=== PATIENT | female | born 1985 | race Caucasian/White ===

== ENCOUNTER → 2017-07-20 14:58 | Outpatient (CLI) | payer SELFPAY ==
[2017-07-20 16:19] LABS: Anion Gap 9 (5-15); BUN 16 mg/dL (7-18); BUN/Creat Ratio 20.3 RATIO (10-20); Calcium,Total 8.6 mg/dL (8.5-10.1); Chloride 107 mmol/L (98-107); Creatinine, Serum 0.79 mg/dL (0.55-1.02); EST Glomerular Filtration Rate 89 mL/min (>60); Est Glom Filt Rate - Afr Amer 108 mL/min (>60); Glucose 80 mg/dL (74-106); Potassium 3.5 mmol/L (3.5-5.1); Sodium Level 141 mmol/L (136-145)
== END ==
PROVIDERS: Family Provider Family Medicine; PCP Family Medicine; Visit Provider Family Medicine
DX: I10 Essential (primary) hypertension (principal)
CPT/HCPCS: 36415; 80048

== ENCOUNTER → 2018-04-19 16:00 | Outpatient (CLI) | payer OTHER, SELFPAY ==
[2015-08-06 03:54] VITALS: BMI 35.3
[2018-04-19 17:52] LABS: Anion Gap 12 (5-15); BUN 11 mg/dL (7-18); Calcium,Total 8.8 mg/dL (8.5-10.1); Chloride 106 mmol/L (98-107); Creatinine, Serum 0.73 mg/dL (0.55-1.02); EST Glomerular Filtration Rate 96 mL/min (>60); Est Glom Filt Rate - Afr Amer 116 mL/min (>60); Glucose 69 mg/dL (74-106); Potassium 3.8 mmol/L (3.5-5.1); Sodium Level 141 mmol/L (136-145)
== END ==
PROVIDERS: Family Provider Family Medicine; PCP Family Medicine; Visit Provider Family Medicine
DX: I10 Essential (primary) hypertension (principal)
CPT/HCPCS: 36415; 80048

== ENCOUNTER → 2018-10-18 | Outpatient (CLI) | payer OTHER, SELFPAY ==
[2015-08-06 03:54] VITALS: BMI 35.3
[2018-10-18 17:56] LABS: Anion Gap 7 (5-15); BUN 12 mg/dL (7-18); BUN/Creat Ratio 16.2 RATIO (10-20); Calcium,Total 8.9 mg/dL (8.5-10.1); Chloride 104 mmol/L (98-107); Creatinine, Serum 0.74 mg/dL (0.55-1.02); EST Glomerular Filtration Rate 95 mL/min (>60); Est Glom Filt Rate - Afr Amer 115 mL/min (>60); Glucose 82 mg/dL (74-106); Potassium 3.3 mmol/L (3.5-5.1); Sodium Level 138 mmol/L (136-145)
== END | disposition home or self-care (01) ==
LOC: MTLAB 16:23
PROVIDERS: Family Provider Family Medicine; PCP Family Medicine; Referring Provider Family Medicine; Visit Provider Family Medicine
DX: I10 Essential (primary) hypertension (principal)
CPT/HCPCS: 36415; 80048

== ENCOUNTER → 2018-11-18 | Outpatient (CLI) | payer OTHER, SELFPAY ==
[2015-08-06 03:54] VITALS: BMI 35.3
[2018-11-25 15:03] LABS: HPV Reflexed? NOT INDICATED; HPV Rflx Negative
== END | disposition home or self-care (01) ==
LOC: LABSPEC 15:26
PROVIDERS: PCP Family Medicine; Visit Provider Obstetrics & Gynecology
DX: Z12.4 Encounter for screening for malignant neoplasm of cervix (principal)
CPT/HCPCS: 88175; G0145

== ENCOUNTER → 2019-04-22 16:09 | Outpatient (CLI) | payer OTHER, SELFPAY ==
[2015-08-06 03:54] VITALS: BMI 35.3
[2019-04-22 18:44] LABS: Anion Gap 8 (5-15); BUN 10 mg/dL (7-18); BUN/Creat Ratio 11.6 RATIO (10-20); Calcium,Total 8.8 mg/dL (8.5-10.1); Chloride 106 mmol/L (98-107); Cholesterol 181 mg/dL (200); Creatinine, Serum 0.86 mg/dL (0.55-1.02); EST Glomerular Filtration Rate 79 mL/min (>60); Est Glom Filt Rate - Afr Amer 96 mL/min (>60); Glucose 86 mg/dL (74-106); High Density Lipoprotein 45 mg/dL; Potassium 3.3 mmol/L (3.5-5.1); Sodium Level 139 mmol/L (136-145); Triglycerides 207 mg/dL; Very Low Density Lipoprotein 41 mg/dL (5-40)
== END ==
PROVIDERS: PCP Family Medicine; Visit Provider Family Medicine
DX: I10 Essential (primary) hypertension (principal)
CPT/HCPCS: 36415; 80048; 80061

== ENCOUNTER → 2019-10-22 16:02 | Outpatient (CLI) | payer OTHER, SELFPAY ==
[2015-08-06 03:54] VITALS: BMI 35.3
[2019-10-22 18:49] LABS: Anion Gap 9 (5-15); BUN 10 mg/dL (7-18); BUN/Creat Ratio 14.1 RATIO (10-20); Chloride 101 mmol/L (98-107); Creatinine, Serum 0.71 mg/dL (0.55-1.02); EST Glomerular Filtration Rate 99 mL/min (>60); Est Glom Filt Rate - Afr Amer 120 mL/min (>60); Glucose 67 mg/dL (74-106); Potassium 3.2 mmol/L (3.5-5.1); Sodium Level 137 mmol/L (136-145)
== END ==
PROVIDERS: PCP Family Medicine; Referring Provider Family Medicine; Visit Provider Family Medicine
DX: I10 Essential (primary) hypertension (principal)
CPT/HCPCS: 36415; 80048

== ENCOUNTER → 2019-12-19 11:34 | Outpatient (CLI) | payer OTHER, SELFPAY ==
[2015-08-06 03:54] VITALS: BMI 35.3
[2019-12-19 15:16] LABS: BUN 10 mg/dL (7-18); Creatinine, Serum 0.71 mg/dL (0.55-1.02); Glucose 80 mg/dL (74-106)
[2019-12-19 15:17] LABS: Anion Gap 4 (5-15); BUN/Creat Ratio 14.1 RATIO (10-20); Calcium,Total 8.9 mg/dL (8.5-10.1); Chloride 104 mmol/L (98-107); EST Glomerular Filtration Rate 99 mL/min (>60); Est Glom Filt Rate - Afr Amer 120 mL/min (>60); Potassium 3.1 mmol/L (3.5-5.1); Sodium Level 138 mmol/L (136-145)
== END ==
PROVIDERS: PCP Family Medicine; Referring Provider Family Medicine; Visit Provider Family Medicine
DX: I10 Essential (primary) hypertension (principal)
CPT/HCPCS: 36415; 80048

== ENCOUNTER → 2020-01-23 14:30 | Outpatient (CLI) | payer OTHER, SELFPAY ==
[2015-08-06 03:54] VITALS: BMI 35.3
[2020-01-23 17:58] LABS: Anion Gap 8 (5-15); BUN 9 mg/dL (7-18); BUN/Creat Ratio 10.9 RATIO (10-20); Calcium,Total 9.3 mg/dL (8.5-10.1); Chloride 102 mmol/L (98-107); Creatinine, Serum 0.82 mg/dL (0.55-1.02); EST Glomerular Filtration Rate 83 mL/min (>60); Est Glom Filt Rate - Afr Amer 101 mL/min (>60); Glucose 94 mg/dL (74-106); Potassium 3.1 mmol/L (3.5-5.1); Sodium Level 139 mmol/L (136-145)
== END ==
PROVIDERS: PCP Family Medicine; Referring Provider Family Medicine; Visit Provider Family Medicine
DX: I10 Essential (primary) hypertension (principal)
CPT/HCPCS: 36415; 80048

== ENCOUNTER → 2020-02-23 09:22 | Outpatient (CLI) | payer OTHER, SELFPAY ==
[2015-08-06 03:54] VITALS: BMI 35.3
[2020-02-23 10:21] LABS: Anion Gap 4 (5-15); BUN 8 mg/dL (7-18); BUN/Creat Ratio 10.7 RATIO (10-20); Calcium,Total 9.1 mg/dL (8.5-10.1); Chloride 110 mmol/L (98-107); Creatinine, Serum 0.74 mg/dL (0.55-1.02); EST Glomerular Filtration Rate 94 mL/min (>60); Est Glom Filt Rate - Afr Amer 113 mL/min (>60); Glucose 92 mg/dL (74-106); Potassium 3.5 mmol/L (3.5-5.1); Sodium Level 142 mmol/L (136-145)
== END ==
PROVIDERS: PCP Family Medicine; Visit Provider Family Medicine
DX: I10 Essential (primary) hypertension (principal)
CPT/HCPCS: 36415; 80048

== ENCOUNTER → 2020-04-21 14:48 | Outpatient (CLI) | payer OTHER, SELFPAY ==
[2015-08-06 03:54] VITALS: BMI 35.3
--- NOTE | 2020-04-21 14:51 | RAD_ITS ---
STUDY: X-RAY - RIGHT KNEE REASON FOR EXAM: Female, 34 years old. right knee pain TECHNIQUE: For view(s) of the knee. COMPARISON: 05/19/2011 FINDINGS: Normal visualized distal femur. Normal visualized proximal tibia and fibula. Normal proximal tibiofibular articulation. Normal medial femorotibial compartment. Normal lateral femorotibial compartment. There is moderate degenerative arthrosis of the patellofemoral articulation. The soft tissue structures are unremarkable. 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 MRI may be useful. Electronically Signed: Axel Hall MD at 15:11 EST Tel , Service support ,
== END ==
PROVIDERS: PCP Family Medicine; Referring Provider Family Medicine; Visit Provider Family Medicine
DX: M25.561 Pain in right knee (principal)
CPT/HCPCS: 73564

== ENCOUNTER → 2020-10-20 14:04 | Outpatient (CLI) | payer OTHER, SELFPAY ==
[2015-08-06 03:54] VITALS: BMI 35.3
[2020-10-20 15:50] LABS: Anion Gap 8 (5-15); BUN 7 mg/dL (7-18); BUN/Creat Ratio 10.1 RATIO (10-20); Calcium,Total 9.1 mg/dL (8.5-10.1); Chloride 106 mmol/L (98-107); Cholesterol 204 mg/dL (200); Creatinine, Serum 0.69 mg/dL (0.55-1.02); EST Glomerular Filtration Rate 101 mL/min (>60); Est Glom Filt Rate - Afr Amer 122 mL/min (>60); Glucose 81 mg/dL (74-106); High Density Lipoprotein 41 mg/dL; Potassium 3.2 mmol/L (3.5-5.1); Sodium Level 139 mmol/L (136-145); Thyroid Stim Hormone (TSH) 1.11 uIU/mL (0.358-3.74); Triglycerides 138 mg/dL; Very Low Density Lipoprotein 28 mg/dL (5-40)
== END ==
PROVIDERS: PCP Family Medicine; Referring Provider Family Medicine; Visit Provider Family Medicine
DX: I10 Essential (primary) hypertension (principal); F32.9 Major depressive disorder, single episode, unspecified
CPT/HCPCS: 36415; 80048; 80061; 84443

== ENCOUNTER 2021-06-10 18:05 | Outpatient (CLI) | payer OTHER, SELFPAY ==
[2021-06-15 13:13] LABS: HPV APTIMA, High Risk Negative (Negative)
[2021-06-15 13:37] LABS: HPV Reflexed? YES, CHARGE PATIENT
== END 2021-06-10 23:59 | disposition short-term general hospital (02) ==
PROVIDERS: PCP Family Medicine; Referring Provider Family Medicine; Visit Provider Family Medicine
DX: Z12.4 Encounter for screening for malignant neoplasm of cervix (principal)
CPT/HCPCS: 87624; 88175; G0145

== ENCOUNTER → 2021-12-05 | Outpatient (CLI) | payer OTHER, SELFPAY ==
[2021-12-05 18:17] LABS: Anion Gap 4 (5-15); BUN 10 mg/dL (7-18); BUN/Creat Ratio 13.9 RATIO (10-20); Calcium,Total 9.2 mg/dL (8.5-10.1); Chloride 107 mmol/L (98-107); Cholesterol 183 mg/dL (200); Creatinine, Serum 0.72 mg/dL (0.55-1.02); EST Glomerular Filtration Rate 97 mL/min (>60); Est Glom Filt Rate - Afr Amer 117 mL/min (>60); Glucose 89 mg/dL (74-106); High Density Lipoprotein 39 mg/dL; Potassium 3.9 mmol/L (3.5-5.1); Sodium Level 137 mmol/L (136-145); Triglycerides 187 mg/dL; Very Low Density Lipoprotein 37 mg/dL (5-40)
== END | disposition home or self-care (01) ==
LOC: MFPLAB 15:50
PROVIDERS: PCP Family Medicine; Referring Provider Family Medicine; Visit Provider Family Medicine
DX: I10 Essential (primary) hypertension (principal)
CPT/HCPCS: 36415; 80048; 80061

== ENCOUNTER → 2022-11-20 | Outpatient (CLI) | payer OTHER, SELFPAY ==
[2022-11-20 18:32] LABS: Anion Gap 5 (5-15); BUN 8 mg/dL (7-18); BUN/Creat Ratio 9.8 RATIO (10-20); Calcium,Total 8.8 mg/dL (8.5-10.1); Chloride 106 mmol/L (98-107); Cholesterol 185 mg/dL (200); Creatinine, Serum 0.82 mg/dL (0.55-1.02); EST Glomerular Filtration Rate 83 mL/min (>60); Est Glom Filt Rate - Afr Amer 101 mL/min (>60); Glucose 101 mg/dL (74-106); High Density Lipoprotein 36 mg/dL; Potassium 3.6 mmol/L (3.5-5.1); Sodium Level 137 mmol/L (136-145); Triglycerides 238 mg/dL; Very Low Density Lipoprotein 48 mg/dL (5-40)
== END | disposition home or self-care (01) ==
LOC: MFPLAB 16:06
PROVIDERS: PCP Family Medicine; Visit Provider Family Medicine
DX: I10 Essential (primary) hypertension (principal)
CPT/HCPCS: 36415; 80048; 80061

== ENCOUNTER 2024-03-14 08:00 | Day surgery (SDC) | payer OTHER, SELFPAY ==
--- NOTE | 2024-03-12 15:58 | HP.PCM.OB_ITS ---
History and Physical Date of Admission: 03/14/24 Expand All Collapse All Pre-Op History and Physical HPI: The patient is a 38 year old female presenting for pre-operative visit. She is scheduled for Hysteroscopy D&C and Polypectomy with symphion, and IUD insertion- liletta, for AUB, adenomyosis, endometrial polyps on 03/14/24. Proc edure discussed along with risks, benefits and complications. Other alternatives discussed for management. Consent form signed? Yes. PAST MEDICAL HISTORY PAST MEDICAL HISTORY Diagnosis Date ? Cervical high risk HPV (human papillomavirus) test positive ? Depression ? Essential hypertension PAST SURGICAL HISTORY PAST SURGICAL HISTORY Procedure Laterality Date ? CERVIX UTERI CONIZA LP ELCTRO EXCI 2014 ? EXTRACTION ERUPTED TOOTH/EXR 2000 ? TONSILLECTOMY & ADENOIDECTOMY <AGE 10 CURRENT MEDICATIONS Current Outpatient Medications Medication Sig Dispense Refill ? losartan (COZAAR) 50 mg tablet Take 1 tablet by mouth every afternoon. ? sertraline (ZOLOFT) 100 mg tablet Take 1.5 tablets by mouth every afternoon. ? cetirizine HCl (ZYRTEC ORAL) Take by mouth. No current facility-administered medications for this visit. ALLERGIES: Patient has no known allergies. PERSONAL HISTORY: SOCIAL HISTORY Social History Tobacco Use ? Smoking status: Every Day Types: Cigarettes ? Smokeless tobacco: Never Vaping Use ? Vaping status: Never Used Substance Use Topics ? Alcohol use: Yes ? Drug use: Never FAMILY HISTORY: FAMILY HISTORY FAMILY HISTORY Problem Relation Age of Onset ? Heart Attack Mother 61 stents placed REVIEW OF SYMPTOMS: negative except as noted above PHYSICAL EXAMINATION: VITALS: Blood pressure 142/88, pulse 66, height 167.6 cm (5' 6), weight 103.9 kg (229 lb), last menstrual period 03/03/2024, SpO2 97%. GENERAL: The patient is well nourished, well hydrated in no acute distress. , The patient is oriented to time, place, and person. NECK: full range of motion IMPRESSION: 38yo with AUB, Adenomyosis, Endometrial polyp, PLAN: Hysteroscopy, D&C, Polypectomy with symphion and insertion of Liletta IUD Pt has been counseled on risks/benefits and alternatives of surgery including but not limited to anesthesia, bleeding, infection, Uterine perforation with subsequent injury to pelvic structures including bowel, bladder, ureters and vessels. Pt wishes to proceed with surgery at this time. Pre and post op instructions reviewed I have reviewed and updated past medical and surgical history, medications and allergies Ara Araya MD
[2024-03-14] VITALS (7 sets, daily range): BP systolic 128–141; BP diastolic 74–98; PULSE 60–77; RESP 16; TEMP 36–36.6; O2SAT 93–98; BMI 35.5
--- NOTE | 2024-03-14 | EMB_PTH ---
PATIENT: KAREN HEAD LOC: [facility] – [place] U#:[id number] AGE/SX: 38/F ROOM: RE03/14/[address]: Dr. Ara James, MDDOB: 1985 BED: DIS: 03/14/2024 SPEC #: [id number] RECD: 03/14/24 12:50 STATUS: LAINEY RANDI #: [id number] NORA: 03/14/24 00:[address]: Ara James DEPT: SURGICAL PATHOLOGY RECD BY: Kleber Carter ENTERED: 03/14/24 12:50 SP TYPE: ENDOM BX/C [place] DR: Dr. Freda Fraser MD Tissues: Endometrium, NOS Procedures: Surgery Specimen Level IV HEADER OPERATION: Hysteroscopy, D&C PRE-OP DIAGNOSIS: Abnormal uterine bleeding, adenomyosis, endometrial polyp TISSUE SUBMITTED: Endometrial curettings MICROSCOPIC DIAGNOSIS Endometrial curettings: Predominantly proliferative endometrium with focal area of mildly disordered proliferative endometrium. Fragments of benign endocervical mucosa. 03/17/2024 MICROSCOPIC DESCRIPTION Slides are reviewed. GROSS DESCRIPTION Received in fixative is one container labeled with the patient's name and designated Endometrial curettings. The specimen consists of multiple irregular fragments of zavaleta-pink soft tissue that in aggregate measure 5.0 x 3.0 x 0.2 cm. The specimen is totally submitted in two cassettes. 03/14/2024 TC:5 CPT:42285
--- NOTE | 2024-03-14 08:21 | PRE.ANES_ITS ---
ASA Classification* ASA Classification ASA Classification: 2 (SEE WRITTEN PRE ANESTHESIA RECORD FOR FULL ASSESSMENT) Assessment & Plan Anesthesia* Anesthesia Assessment Anesthesia Assessment: Discussed sedation and/or anesthesia options, risks, benefits, and alternatives with patient/parents/legal guardian/POA. Questions invited. The patient/parents/legal guardian/POA seems to understand and agrees to proceed with anesthesia plan. Reviewed the physical assessment, medical history, allergy history and patient home medications list prior to surgery/procedure/anesthetic and documented any changes. Performed airway and anesthesia risk assessments. Anesthesia Type Anesthesia Type: MAC (SEE WRITTEN PRE ANESTHESIA RECORD FOR FULL ASSESSMENT) Anesthesia Focused Assessment* Airway Assessment Mouth opens: >3 cm Mallampati Score: II Focused Labs Anesthesia Preop lab: CBC WBC 9.8 K/mm3 (4.4-11.0) 08/06/15 04:25 RBC 4.55 M/mm3 (4.2-5.4) 08/06/15 04:25 Hgb 13.6 g/dl (12.0-15.0) 08/06/15 04:25 Hct 40.5 % (37-47) 08/06/15 04:25 Plt Count 276 K/mm3 (150-450) 08/06/15 04:25 CHEMISTRY Potassium 3.6 mmol/L (3.5-5.1) 11/20/22 16:08 Sodium 137 mmol/L (136-145) 11/20/22 16:08 BUN 8 mg/dL (7-18) 11/20/22 16:08 Creatinine 0.82 mg/dL (0.55-1.02) 11/20/22 16:08 Glucose 101 mg/dL (74-106) 11/20/22 16:08 TSH 1.11 uIU/mL (0.358-3.74) 10/20/20 14:05 COAG PT 11.7 SECONDS (11.7-14.9) 08/06/15 04:25 Urine Test Negative Negative 09/23/14 11:41 Pre-Assessment Diagnosis/Proposed Procedure Planned Operative Procedure(s): Hysteroscopy,D&C Symphion, Liletta IUD insertion Anesthesia History 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 When Was Last Pacemaker Check QUESTION #4 FULL TEXT: You/Your Family Experience fever (hyperthermia) with Anesthesia Last Oral Intake Last Oral intake: Last Oral Intake NPO since Meds taken in AM with sips of water? Meds patient instructed to take am of surgery PONV PONV - calibration engineer: PONV - calibration engineer Female Yes 03/10/24 15:07 HX of Motion Sickness No 03/10/24 15:07 HX of N/V After Surgery No 03/10/24 15:07 Non-Smoker No 03/10/24 15:07 Duration of Surgery greater No 03/10/24 15:07 than 60 minutes Number of Risk Factors 1 03/10/24 15:07 PONV Score Low Risk 03/10/24 15:07 Respiratory Assessment Respiratory Assessment - calibration engineer: Respiratory Tract Infection Hx - calibration engineer Hx Respiratory Tract Infection No 03/10/24 15:07 STOP Sleep Apnea STOP Sleep Apnea - calibration engineer: STOP Sleep Apnea - calibration engineer Hx Hypertension Yes: CONTROLLED WITH MED 03/10/24 15:07 Hx Sleep Apnea No 03/10/24 15:07 CPAP No 03/10/24 15:07 BIPAP No 03/10/24 15:07 Do you snore loudly (louder No 03/10/24 15:07 than talking or can be heard Do you often feel tired/ No 03/10/24 15:07 fatigued/ sleepy during daytime? Has anyone observed you stop No 03/10/24 15:07 breathing during sleep? STOP Results Negative 03/10/24 15:07 QUESTION #5 FULL TEXT : Do you snore loudly (louder than talking or can be heard through closed doors)? 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 Specify any problems Hx of Preganancy in last 3 N/A 03/10/24 15:07 Months Nurse Filling Out Transfusion NBUCHER 03/10/24 15:07 & Questions: Date: 03/10/24 03/10/24 15:07 Time: 15:10 03/10/24 15:07 Patient unable to answer at this time (ie. confused, unrespo /Reproduction History /Reproductive History - calibration engineer: /Reproductive Hx- calibration engineer Hx Now Gestational Age (in weeks): EDC: Hx Hx Para Hx Section SAB Active Medications Active Medications: Current Medications Generic Name Dose Route Start Last Admin Trade Name Freq PRN Reason Stop Dose Admin Levonorgestrel 1 each 03/14/24 09:30 Levonorgestrel Iud (Liletta) INTRA-UTER 03/14/24 09:31 X1 ONE [facility] Medical History Wears glasses Depression Osteoarthritis Migraine headache Smoker Hypertension Home Medications ?Medication ?Instructions ?Recorded ?Last Taken ?Type multivitamin with folic acid 400 1 tab PO DAILY 09/18/14 08/05/15 12:00 History mcg tablet (Thera) one cetirizine 10 mg capsule (Zyrtec) 10 mg PO PRN PRN Congestion 08/06/15 08/05/15 20:00 History losartan 50 mg tablet 50 mg PO DAILY 03/10/24 Unknown History sertraline 100 mg tablet 150 mg PO DAILY 03/10/24 Unknown History Allergy/AdvReac Type Severity Reaction Status Date / Time cefuroxime axetil (From Allergy Other Verified 03/14/24 08:18 Ceftin) diphenhydramine HCl (From Allergy Other Verified 03/14/24 08:18 Benadryl) Surgical History History of loop electrical excision procedure (LEEP) (~2014) History of tonsillectomy (~2000) History of wisdom tooth extraction (~1999) Social History Smoking Status: Current every day smoker tobacco type: cigarettes Review of Systems (Anesthesia) ROS Narrative System reviewed and no additional complaints, except as documented.
[2024-03-14 08:22] LABS: Internal QC Validated? YES +Cl - CLEAR BKGD; Pregnancy, Urine Negative Negative
--- NOTE | 2024-03-14 09:07 | PCM.DC ---
Discharge Instructions Diet Discharge Diet: No restrictions Activity May resume sexual activity in: 1 week Dressing / Incision Call your doctor if you observe: Fever of 101 or Higher, Inability to urinate, Using more than 1 pad per hour and Uncontrolled pain Follow Up Care Please Follow Up With: Ara James MD When: 1-2 weeks post OP if you need an appointment please call [phone] Test Results: Test results from this visit will be discussed in further detail at your follow-up appointment, if applicable. Discharge Plan Admission Attending Provider: Ara James Primary Care Provider: Freda Fraser Instructions Print Language: Trinidadian Discharge Orders/Prescriptions Prescriptions: No Action multivitamin with folic acid [Thera] 1 TABLET tablet 1 tab PO DAILY Zyrtec 10 MG capsule 10 mg PO PRN PRN (Reason: Congestion) losartan 50 mg tablet 50 mg PO DAILY sertraline 100 mg tablet 150 mg PO DAILY Referrals / Follow Up: Freda Fraser MD [Primary Care Provider] - Disposition Disposition (needs filled in before D/C Order can be placed): Home, Self Care
[2024-03-14] MEDS: Levonorgestrel IUD (Liletta) 1 EACH INTRA-UTER (09:19)
--- NOTE | 2024-03-14 09:31 | PCM.OPRPT ---
Operative Report (Standard) Operative Information Surgery/Procedure Performed: hysteroscopy, D&C with symphion, insertion of liletta IUD Surgeon: Ara James Date of Procedure: 03/14/24 Procedure Start Time: 09:15 Procedure Stop Time: 09:28 Pre-Operative Diagnosis: AUB, Adenomyosis, endometrial polyps Post-Operative Diagnosis: same Select all DRAINS/GRAFTS/IMPLANTS that apply: Implanted device Implanted device details: Liletta IUD Type of Anesthesia: MAC Estimated Blood Loss: <5cc Specimen collected: Yes Description of specimen(s) removed: endometrial curettings Description of surgery: Informed consent was obtained the patient was taken the operating room she was placed in supine position. She was given anesthesia. She was then placed in the [facility] where she was prepped and draped in the normal sterile fashion. bladder drained prior to start of procedure. At this time the weighted speculum was placed in the posterior fornix of vagina. Single-tooth tenaculum was used to gently grasp the anterior lip the cervix. At this time the uterine cavity was sounded to approximately 9 cm. Gentle dilatation was performed once adequate dilatation of the cervix was achieved the hysteroscope using normal saline as a distention medium was placed. Tubal ostia visualized. possible polypoid like tissue present. Symphion resecting device used to obtain endometrial curettings. Tissue will be sent to pathology for evaluation. Liletta IUD placed at fundal aspect without complication. strings cut to 2.cm. Tenaculum removed. Good hemostasis. Instrument, lap count correct x 2. Fluid deficiet 200cc. Vaginal Sweep was negative. Surgical Findings: possible polypoid like tissue. 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
--- NOTE | 2024-03-14 09:45 | PCM.POST.ANE ---
Anesthesia: Postop Eval I Current Vital Signs Temperature: 97 F Pulse Rate: 70 Blood Pressure: 140/74 Respiratory Rate: 16 Pulse Ox: 96 Oxygen Delivery Method: Room Air Assessment Airway patent: Yes Spontaneous unlabored respirations: Yes Mental status: Awake and Calm nausea: No Vomiting: No Anesthesia Complication: No Fluid Hydration Crystalloid volume administer (ml): 10 Total IV fluid infused: 10 Progress Note Anesthesia document: Postop Eval 1 completed: Yes
== END 2024-03-14 10:19 | disposition home or self-care (01) ==
LOC: SDC 08:02 → AC 08:04
PROVIDERS: PCP Family Medicine; Referring Provider Obstetrics & Gynecology; Visit Provider Obstetrics & Gynecology
PROC: 0UB98ZZ Excision of Uterus, Via Natural or Artificial Opening Endoscopic (ICD-10-PCS; CPT 58558; principal; 2024-03-14 09:15)
DX: N93.9 Abnormal uterine and vaginal bleeding, unspecified (principal); N84.0 Polyp of corpus uteri; I10 Essential (primary) hypertension; N80.03 Adenomyosis of the uterus; F32.A Depression, unspecified; F17.210 Nicotine dependence, cigarettes, uncomplicated
CPT/HCPCS: 58300; 58558; 81025; 88305; A4216; J2405

== ENCOUNTER → 2024-08-18 | Outpatient (CLI) | payer OTHER, SELFPAY ==
--- NOTE | 2024-08-18 16:31 | RAD_ITS ---
PROCEDURE: Pelvis and right hip radiographs, three views 08/18/2024 REASON FOR EXAM: Fall Sunday. Pain. TECHNIQUE: Three views of the pelvis and right hip were obtained. COMPARISON: None available FINDINGS: Three views of the pelvis and right hip were obtained. The lower lumbar spine is intact. A metallic T-shaped intrauterine device projects over the central pelvis. A few pelvic phleboliths are present. Proximal femurs intact. No significant degenerative changes of the hip joints. No acute fracture or dislocation of the right hip. RAD/HIP, UNI W/ Pelvis 2-3 Views IMPRESSION: No acute bony abnormality of the pelvis/right hip. No significant hip joint narrowing. If there is persistent pain or clinical concern, follow-up MRI evaluation may b e helpful. Reading Location: [facility]
== END | disposition home or self-care (01) ==
PROVIDERS: PCP Family Medicine
DX: M25.551 Pain in right hip (principal)
CPT/HCPCS: 73502